=== PATIENT | male | born 1945 | race Caucasian/White ===

== ENCOUNTER 2022-06-17 07:24 | Day surgery (SDC) | payer MEDICARE ==
[2022-06-16 09:57] VITALS: BMI 35.6
[2022-06-17] MEDS ORDERED: Famotidine/PF 20 mg/2ml Vial ONE (08:35)
[2022-06-17] MEDS ORDERED: Bupivacaine HCl 0.5%/Epinephrine 1:200,000/PF 30 ml Vial ONE (09:37)
[2022-06-17] MEDS ORDERED: Clindamycin/D5W 600 mg/50 ml Premix Bag ONE (09:47)
[2022-06-17] MEDS ORDERED: Fentanyl 100 MCG/2 ML VIAL ONE ×2 (09:56→11:06)
[2022-06-17] MEDS ORDERED: Dexamethasone 4 mg/ml Vial ONE (09:56)
[2022-06-17] MEDS ORDERED: PROPOFOL 20 ML ONE (09:56)
[2022-06-17] MEDS ORDERED: Rocuronium Bromide 10 MG/ML (10ML VIAL) ONE (09:56)
[2022-06-17] MEDS ORDERED: Ondansetron PF 4 MG/2 ML Vial ONE (09:56)
[2022-06-17] MEDS ORDERED: SUGAMMADEX SODIUM 200 MG/2 ML VIAL ONE (10:34)
[2022-06-17] MEDS ORDERED: Acetaminophen 325 MG TAB PO PRN (11:03)
[2022-06-17] MEDS ORDERED: traMADol HCl 50 MG TAB PO PRN (11:03)
[2022-06-17] MEDS ORDERED: traMADol HCl 50 MG TAB ONE (12:02)
== END 2022-06-17 13:10 | disposition home or self-care (01) ==
LOC: CSHSDC 07:24
PROVIDERS: ATTEND Surgery
PROC: 0FT44ZZ Resection of Gallbladder, Percutaneous Endoscopic Approach (ICD-10-PCS; principal; 2022-06-17)
DX: K80.10 Calculus of gallbladder with chronic cholecystitis without obstruction (principal); I25.10 Atherosclerotic heart disease of native coronary artery without angina pectoris; I10 Essential (primary) hypertension; E03.9 Hypothyroidism, unspecified; E78.5 Hyperlipidemia, unspecified; K21.9 Gastro-esophageal reflux disease without esophagitis; E11.9 Type 2 diabetes mellitus without complications; Z79.899 Other long term (current) drug therapy; Z88.0 Allergy status to penicillin; Z88.5 Allergy status to narcotic agent; Z79.82 Long term (current) use of aspirin; Z79.84 Long term (current) use of oral hypoglycemic drugs; Z91.040 Latex allergy status
CPT/HCPCS: 47562; 93005; C1776; 88304; 93010; J1100; J2405; J2704; J3010; J3490; S0028